=== PATIENT | male | born 1985 | race Asian ===

== ENCOUNTER 2017-11-28 08:24 | Emergency (ER) | payer OTHER ==
[2017-11-28] MEDS: MORPHINE 4 MG/ML 1ML VIAL/SYRINGE (J2270) IV ×2 (08:44→10:16)
[2017-11-28] MEDS: NS 1,000 ML IV (08:57)
[2017-11-28] MEDS: ceFAZolin SOD 1 GM in D5W MINI-BAG PLUS 50 ML IV (08:58)
== END 2017-11-28 11:03 | disposition short-term general hospital (02) ==
LOC: M ED 08:24
DX: S63.005A Unspecified dislocation of left wrist and hand, initial encounter (principal); S62.102A Fracture of unspecified carpal bone, left wrist, initial encounter for closed fracture; W18.39XA Other fall on same level, initial encounter; Y92.59 Other trade areas as the place of occurrence of the external cause; Y99.0 Civilian activity done for income or pay
CPT/HCPCS: J0690

== ENCOUNTER → 2018-09-20 | Outpatient (REF) | payer OTHER ==
[2018-09-20 08:58] LABS: SEMEN APPEARANCE OPAQUE (OPAQUE)
[2018-09-20 08:59] LABS: SEMEN VISCOSITY LIQUID (LIQUID); SEMEN VOLUME 2.3 ml (4.0-5.0); SEMEN pH 8.5 (7.0-8.0); SPERM CONCENTRATION 27.7 M/ml (>=15.0); WBC CONCENTRATION >1 M/ml (<=1 M/ml)
== END ==
LOC: M LAB REF 08:47
PROVIDERS: ATTEND General Practice
DX: Z31.41 Encounter for fertility testing (principal)

== ENCOUNTER → 2018-12-20 | Outpatient (REF) | payer OTHER ==
[2018-12-20 13:08] LABS: SEMEN APPEARANCE OPAQUE (OPAQUE)
[2018-12-20 13:09] LABS: SEMEN VISCOSITY LIQUID (LIQUID); SEMEN VOLUME 3.2 ml (2.0-5.0); SEMEN pH 8.5 (7.0-8.0); SPERM CONCENTRATION 124.2 M/ml (>=15.0); WBC CONCENTRATION <=1 M/ml (<=1 M/ml)
== END ==
LOC: M LAB REF 13:03
PROVIDERS: ATTEND Physician Assistant
DX: N46.9 Male infertility, unspecified (principal)